=== PATIENT | female | born 1945 | race Caucasian/White ===

== ENCOUNTER 2017-04-26 12:44 | Inpatient (IN) | payer OTHER ==
[~2017-04-26 12:44] MED LIST: BUPIVACAINE HCL/PF 0.5% (5MG/ML) 10 ML VIAL IJ ONE
[2017-04-26 12:48] VITALS: BMI 27.3
[2017-04-26] MEDS ORDERED: ONDANSETRON 4 MG/2 ML VIAL IVPUSH ONE (13:35)
[2017-04-26] MEDS ORDERED: SODIUM CHLORIDE 1,000 ML IV STA ×2 (13:35→14:10)
[2017-04-26] MEDS ORDERED: ONDANSETRON 4 MG/2 ML VIAL ONE ×3 (13:37→20:29)
[2017-04-26 13:47] LABS: MCH 29.7 pg (25.7-33.7); MEAN CELL VOLUME 89.9 fl (80-96); MEAN PLT VOLUME 8.8 fl (7.5-11.1); PLATELET COUNT 233 K/MM3 (134-434); RDW 13.9 % (11.6-15.6); URINE APPEARANCE CLEAR; URINE BILIRUBIN 1+ (NEGATIVE); URINE BLOOD 2+ (NEGATIVE); URINE GLUCOSE (UA) NEGATIVE (NEGATIVE); URINE KETONE TRACE (NEGATIVE); URINE NITRITE NEGATIVE (NEGATIVE); URINE UROBILINOGEN 0.2 mg/dL (0.2-1.0); WHITE BLOOD COUNT 20.2 K/mm3 (4.0-10.0)
[2017-04-26 13:48] LABS: URINE COLOR DK YELLOW; URINE LEUK ESTERASE 1+ (NEGATIVE); URINE PROTEIN 1+ (NEGATIVE)
--- NOTE | 2017-04-26 13:48 | PDOC ---
History of Present Illness - General Chief Complaint: Pain Stated Complaint: Abd pain Time Seen by Provider: 04/26/17 12:53 History Source: Patient Exam Limitations: No Limitations - History of Present Illness Travel History: No Initial Comments: 04/26/17 12:56 71-year-old female sent over by her PCP Dr. Aviles for evaluation of fever, anorexia, nausea and right lower quadrant pain concerning for appendicitis. Patient denies recent travel, recent illness, recent sick contacts. Patient denies any urinary complaints, bowel complaints. Patient also denies GI disorders, smoking history, or alcohol use. Timing/Duration: reports: getting worse Quality: reports: moderate, cramping, sharpness Abdominal Pain Onset Location: reports: RUQ, RLQ, periumbilical Pain Radiation: reports: no radiation Activities at Onset: reports: none Aggravating Factors: improves with: None Alleviating Factors: improves with: None, Passing Gas Past History - Travel Traveled outside of the country in the last 30 days: No Close contact w/someone who was outside of country & ill: No - Past Medical History Allergies/Adverse Reactions: Allergies Allergy/AdvReac Type Severity Reaction Status Date / Time No Known Allergies Allergy Verified 04/26/17 12:48 Home Medications: Ambulatory Orders Amlodipine Besylate [Norvasc -] 0 mg PO DAILY 04/26/17 Levothyroxine [Synthroid -] 0 mcg PO DAILY 04/26/17 HTN: Yes Thyroid Disease: Yes - Psycho/Social/Smoking Cessation Hx Suicidal Ideation: No Smoking History: Never smoked Information on smoking cessation initiated: No Hx Alcohol Use: No Drug/Substance Use Hx: No Patient Lives Alone: No Lives with/in: spouse/SO Review of Systems - Review of Systems Able to Perform ROS?: Yes Constitutional: Yes: Chills HEENTM: No: Symptoms Reported Respiratory: No: Symptoms reported Cardiac (ROS): No: Symptoms Reported ABD/GI: Yes: Nausea, Poor Appetite, Poor Fluid Intake, Abdominal cramping. No: Constipated, Diarrhea : No: Symptoms Reported Musculoskeletal: No: Symptoms Reported Integumentary: No: Symptoms Reported Neurological: No: Symptoms reported Endocrine: No: Symptoms Reported Hematologic/Lymphatic: No: Symptoms Reported *Physical Exam - Vital Signs Last Vital Signs Temp Pulse Resp BP Pulse Ox 98.6 F 78 19 147/78 100 04/26/17 12:46 04/26/17 12:46 04/26/17 12:46 04/26/17 12:46 04/26/17 12:46 - Physical Exam General Appearance: Yes: Nourished, Appropriately Dressed. No: Apparent Distress HEENT: negative: Pale Conjunctivae Respiratory/Chest: positive: Lungs Clear, Normal Breath Sounds. negative: Respiratory Distress, Accessory Muscle Use Cardiovascular: positive: Regular Rhythm, Regular Rate. negative: Murmur Gastrointestinal/Abdominal: positive: Soft, Tenderness (right lower quadrant positive McBurney's. Right upper quadrant tenderness. Positive Reyes's) Musculoskeletal: negative: CVA Tenderness (R) Extremity: positive: Normal Capillary Refill Integumentary: positive: Normal Color, Warm, Moist Neurologic: positive: Normal Mood/Affect, Motor Strength 5/5 (ambulatory) ED Treatment Course - LABORATORY CBC & Chemistry Diagram: 04/28/17 07:00 04/28/17 07:00 - RADIOLOGY Radiology Studies Ordered: Category Date Time Status ABDOMEN & PELVIS CT WITH CONTR [CT] Stat CT Scan 04/26/17 13:28 Ordered CHEST X-RAY PORTABLE* [RAD] Stat Radiology 04/26/17 13:27 Ordered GALLBLADDER US [US] Stat Ultrasound 04/26/17 13:28 Ordered Medical Decision Making - Medical Decision Making 04/26/17 13:04 Patient sent over by her PCP for evaluation of right lower quadrant and right upper quadrant pain concerning for appendicitis. Patient on exam did have tenderness to the right lower quadrant and right upper quadrant concerning for also cholecystitis. Patient ordered for urine, labs, gallbladder ultrasound and CT with IV contrast of the abdomen. 04/26/17 15:04 Laboratory Tests 04/26/17 13:34 Urine Color Dk yellow Urine pH 6.0 Urine Ketones Trace H Urine Blood 2+ H Ur Leukocyte Esterase 1+ H Urine RBC 9 Urine WBC 15 Pt had urine cx sent,. Pt ordered for ceftriaxone iv. 04/26/17 15:04 Laboratory Tests 04/26/17 04/26/17 13:34 13:34 WBC 20.2 H Hgb 13.2 Hct 40.0 Plt Count 233 Neutrophils % (Manual) 70 Monocytes % (Manual) 3 L Sodium 140 Potassium 3.5 Chloride 102 Carbon Dioxide 29 Anion Gap 9 BUN 12 Creatinine 0.9 Random Glucose 117 H Magnesium 2.2 Total Bilirubin 1.1 H Lipase 68 L Pt concerning for appendicitis. Pt states pain has increased to her rt lower quadrant and suprapubic region describing it as burning and hot feeling. Pt required initially toradol with no improvement , so received dilaudid x 2 until comfortable. Pt concerning for rupture at this time. 04/26/17 16:33 Ultrasound shows acute appendicitis. A focal cecal wall thickening with associated intramural hypodensity noted in the region of the appendiceal orifice as discussed above. This small amount of free fluid in the pelvic. Mildly dilated small bowel which may be an obese of ileus versus mild/ developing obstruction. Patient given IV ceftriaxone will be given IV Flagyl. Case will be discussed with surgeon information assurance analyst. Case also to be discussed with patient's primary care physician. 04/26/17 16:40 Case discussed with patient's PCP Dr. Alonso states she admits to Dr. Slater. She's also recommending Dr. Alvarez for surgery 04/26/17 16:[address] Alvarez and will be down shortly to consult on patient. Patient also has a fever 102.7. Patient ordered for IV Tylenol made nothing by mouth and will be admitted to [facility] inpatient. Case also discussed with the OPTICAL INSTRUMENT REPAIRER for Dr. Slater who accepted the patient. 04/28/17 18:00 *DC/Admit/Observation/Transfer Diagnosis at time of Disposition: Appendicitis Qualifiers: Appendicitis type: acute appendicitis Acute appendicitis type: other Qualified Code(s): K35.89 - Other acute appendicitis - Discharge Dispostion Admit: Yes - Referrals
[2017-04-26 14:09] LABS: URINE BACTERIA RARE /hpf (NONE SEEN); URINE MUCUS MODERATE; URINE RBC 9 /hpf (0-3); URINE WBC 15 /hpf (3-5)
[2017-04-26 14:12] LABS: ALBUMIN 3.9 g/dl (3.4-5.0); ANION GAP 9 (8-16); CALCIUM 8.7 mg/dL (8.5-10.1); CO2 29 mmol/L (21-32); CREATININE 0.9 mg/dL (0.55-1.02); GLUCOSE,RANDOM 117 mg/dL (74-106); MAGNESIUM 2.2 mg/dL (1.8-2.4); SGOT/AST 13 U/L (15-37); SGPT/ALT 24 U/L (12-78)
[2017-04-26 14:14] LABS: ALK PHOS 68 U/L (45-117); BILIRUBIN,TOTAL 1.1 mg/dL (0.2-1.0); TOT PROT 6.7 g/dl (6.4-8.2)
[2017-04-26] MEDS ORDERED: KETOROLAC TROMETHAMINE 30 MG/1 ML VIAL ONE (14:21)
[2017-04-26 14:25] LABS: PLATELET ESTIMATE ADEQUATE (NORMAL); REACTIVE LYMPHOCYTES 7 % (0-80); TOTAL CELLS COUNTED 100
[2017-04-26] MEDS ORDERED: KETOROLAC TROMETHAMINE 30 MG/1 ML VIAL IVPUSH ONE (14:29)
[2017-04-26] MEDS ORDERED: HYDROmorphone HCL CARPU-JECT 1 MG/1 ML DISP.SYRIN ONE ×2 (14:35→14:50)
[2017-04-26] MEDS: HYDROmorphone HCL CARPU-JECT 2 MG/1 ML DISP.SYRIN IVPUSH ONE ×2 (14:35→20:55)
[2017-04-26] MEDS ORDERED: HYDROmorphone HCL CARPU-JECT 1 MG/1 ML DISP.SYRIN IVPUSH ONE (14:49)
[2017-04-26] MEDS ORDERED: CEFTRIAXONE 1 GM in DEXTROSE 5%-WATER - 50 ML IVPB ONE (15:03)
[2017-04-26] MEDS ORDERED: CEFTRIAXONE 50 ML ONE (15:40)
[2017-04-26] MEDS ORDERED: ACETAMINOPHEN INJECTION 100 ML IVPB ONE ×2 (16:48→20:29)
[2017-04-26] MEDS: ACETAMINOPHEN 1000 MG/100 ML VIAL (NON FORMULARY) IVPB ONE (16:52)
[2017-04-26] MEDS ORDERED: morphine CARPU-JECT 2 MG/1 ML DISP.SYRIN IVPUSH PRN (17:28)
[2017-04-26] MEDS ORDERED: SODIUM CHLORIDE 1,000 ML IV SCH (17:30)
[2017-04-26] MEDS ORDERED: ONDANSETRON 4 MG/2 ML VIAL IVPB PRN ×2 (17:32→20:34)
[2017-04-26] MEDS ORDERED: BUPIVACAINE HCL/PF 0.5% (5MG/ML) 10 ML VIAL ONE (17:57)
[2017-04-26] MEDS ORDERED: LACTATED RINGERS SOLUTION 1,000 ML IV SCH (18:30)
[2017-04-26] MEDS ORDERED: PROPOFOL 20 ML ONE (18:31)
[2017-04-26] MEDS ORDERED: ROCURONIUM BROMIDE 50 MG/5 ML VIAL ONE (18:32)
[2017-04-26] MEDS ORDERED: SUCCINYLCHOLINE CHLORIDE 200 MG/10 ML VIAL ONE (18:37)
[2017-04-26] MEDS ORDERED: ceFAZolin SODIUM 1 GM VIAL ONE (18:49)
[2017-04-26] MEDS ORDERED: ceFAZolin SODIUM 1 GM VIAL IVPB ONE ×2 (18:50)
[2017-04-26 18:54] LABS: INR 1.21 (0.82-1.09); PROTHROMBIN TIME (PATIENT) 13.4 SEC (9.98-11.88)
[2017-04-26] MEDS ORDERED: DEXAMETHASONE SOD PHOSPHATE 4 MG/1 ML VIAL ONE (19:03)
[2017-04-26] MEDS ORDERED: BUPIVACAINE HCL/PF 0.5% (5MG/ML) 10 ML VIAL IJ ONE (20:08)
--- NOTE | 2017-04-26 20:30 | CONSULT ---
Consult Consult Specialty:: Surgery Reason for Consultation:: Perforated appendicitis - History of Present Illness Chief Complaint: Abdominal pain History of Present Illness: 71 female seen in the ER for abdominal pain x 2-3 days Pain got worse and then improved Noted subjective fevers Perforated appendicitis noted on CT along with an elevated WBC and + fevers in the ER - History Source History Provided By: Patient Limitations to Obtaining History: No Limitations - Alcohol/Substance Use Hx Alcohol Use: No - Smoking History Smoking history: Never smoked Home Medications - Allergies Allergies/Adverse Reactions: Allergies Allergy/AdvReac Type Severity Reaction Status Date / Time No Known Allergies Allergy Verified 04/26/17 12:48 - Home Medications Home Medications: Ambulatory Orders Amlodipine Besylate [Norvasc -] 0 mg PO DAILY 04/26/17 Levothyroxine [Synthroid -] 0 mcg PO DAILY 04/26/17 Family Disease History - Family Disease History Family History: Unremarkable Review of Systems - Review of Systems Constitutional: reports: Chills, Fever, Malaise HENT: reports: No Symptoms Neck: reports: No Symptoms Cardiovascular: denies: Chest Pain Respiratory: denies: Cough Gastrointestinal: reports: Abdominal Pain. denies: Melena, Vomiting Neurological: denies: Change in LOC Pain Intensity: 5 Physical Exam Vital Signs: Vital Signs Temperature 101.4 F H 04/26/17 17:44 Pulse Rate 94 H 04/26/17 17:44 Respiratory Rate 18 04/26/17 17:44 Blood Pressure 137/82 04/26/17 17:44 O2 Sat by Pulse Oximetry (%) 97 04/26/17 17:44 Constitutional: Yes: Calm Neck: Yes: Supple Cardiovascular: Yes: Regular Rate and Rhythm Respiratory: Yes: Regular Gastrointestinal: Yes: Soft, Tenderness, Tenderness, Rebound (Local rebound/ guarding in the RLQ) Extremities: Yes: WNL Neurological: Yes: Alert, Oriented Labs: CBC, BMP 04/26/17 13:34 04/26/17 13:34 Imaging - Results Cat Scan: Report Reviewed, Image Reviewed Problem List - Problems (1) Perforated appendicitis Code(s): K35.2 - ACUTE APPENDICITIS WITH GENERALIZED PERITONITIS (2) Intra-abdominal abscess Code(s): K65.1 - PERITONEAL ABSCESS (3) SIRS due to Gram-negative infection Code(s): A41.50 - GRAM-NEGATIVE SEPSIS, UNSPECIFIED Assessment/Plan 71 female with perforated appendicitis NPO IV fluids Antibiotics For laparoscopic possible open appendectomy
--- NOTE | 2017-04-26 20:32 | OP ---
Operative Note - Note: Operative Date: 04/26/17 Pre-Operative Diagnosis: Perforated appendicitis Operation: Laparoscopic appendectomy, partial cecectomy, partial omentectomy, abdominal washout, lysis of adhesions Findings: Perforated appendicitis with appendiceal rupture and copious pus and stool in the abdomen and pelvis Surgeon: Alf Alvarez Anesthesia: General Specimens Removed: Appendix, portion of the cecum, omentum Estimated Blood Loss (mls): 50 Drains & Tubes with Location: Operative Report Dictated: Yes
[2017-04-26] MEDS ORDERED: PROMETHAZINE HCL 25 MG/1 ML VIAL ONE (20:39)
[2017-04-26] MEDS: PROMETHAZINE HCL 25 MG/1 ML VIAL IVPUSH ONE (20:50)
[2017-04-26] MEDS ORDERED: HYDROmorphone HCL CARPU-JECT 2 MG/1 ML DISP.SYRIN ONE (20:54)
[2017-04-26 21:04] LABS: MCH 30.5 pg (25.7-33.7); MCHC 33.5 g/dl (32.0-36.0); MEAN CELL VOLUME 91.2 fl (80-96); MEAN PLT VOLUME 9.5 fl (7.5-11.1); PLATELET COUNT 212 K/MM3 (134-434); RDW 13.5 % (11.6-15.6); WHITE BLOOD COUNT 12.2 K/mm3 (4.0-10.0)
[2017-04-26] MEDS: SODIUM CHLORIDE 1,000 ML IV SCH (21:45)
[2017-04-26 22:23] LABS: METAMYELOCYTE 2 % (0-2); PLATELET ESTIMATE ADEQUATE (NORMAL); TOTAL CELLS COUNTED 100
[2017-04-26 22:24] LABS: POLYCHROMASIA 1+
[2017-04-26 22:40] LABS: ANION GAP 10 (8-16); CALCIUM 7.5 mg/dL (8.5-10.1); CO2 25 mmol/L (21-32); CREATININE 0.7 mg/dL (0.55-1.02); GLUCOSE,RANDOM 133 mg/dL (74-106)
[2017-04-26] MEDS: ACETAMINOPHEN 1000 MG/100 ML VIAL (NON FORMULARY) IVPB PRN (22:59)
[2017-04-27] MEDS: METRONIDAZOLE 500 MG PREMIXED 100 ML IVPB SCH ×3 (01:43→16:59)
[2017-04-27] MEDS: ACETAMINOPHEN 1000 MG/100 ML VIAL (NON FORMULARY) IVPB PRN (05:33)
[2017-04-27] MEDS: SODIUM CHLORIDE 1,000 ML IV SCH (05:34)
[2017-04-27] MEDS: LEVOTHYROXINE NA 25 MCG TABLET (FP) PO SCH (06:06)
[2017-04-27] MEDS ORDERED: LEVOTHYROXINE NA 25 MCG TABLET (FP) PO SCH (07:00)
[2017-04-27] MEDS: PROMETHAZINE HCL 25 MG/1 ML VIAL IVPUSH ONE (07:53)
--- NOTE | 2017-04-27 08:12 | OP ---
DATE OF OPERATION: 04/26/2017 SURGEON: Alf Alvarez MD PREOPERATIVE DIAGNOSIS: Perforated appendicitis. POSTOPERATIVE DIAGNOSIS: Perforated appendicitis with copious amounts of pus and stool in the abdomen and pelvis. PROCEDURE: Laparoscopic appendectomy, partial cecectomy, partial omentectomy, and abdominal washout. SPECIMEN: Appendix, portion of the cecum, omentum. ESTIMATED BLOOD LOSS: 30 mL DRAINS: A HERRERA x1. ANESTHESIA: GET. REASON FOR PROCEDURE: This is a 71-year-old female who presented to the hospital with abdominal pain. She was found to have an elevated white count, fevers, and a CT scan demonstrated perforated appendicitis. Because of this, she was consented for a laparoscopic, possible open appendectomy. The risks and benefits of the procedure were explained. This included bleeding, infection, hernia, OH, DVT, PE, injury to surrounding structures, abscess formation, staple line dehiscence as well as . She understood and signed informed consent. DESCRIPTION OF PROCEDURE: The patient was placed supine on the operating room table. She underwent general endotracheal intubation. A Mistry catheter was inserted. The abdomen was prepped and draped in the usual sterile fashion. A timeout was performed. An infraumbilical incision was made, and a 5-mm optical trocar was placed under direct visualization with the laparoscope. After pneumoperitoneum was established with a Veress, a 5-mm trocar was then placed in the suprapubic location. A 12- mm trocar was placed in the left lower quadrant. The patient was placed in Trendelenburg right side up position. Immediately was noted on inspection of the abdominal cavity that there was copious amount of stool and pus in the abdomen and pelvis. In addition, there was a large inflammatory response with inflamed bowel and adhesions from bowel to bowel and bowel to colon. Carefully, lysis of adhesions was performed with blunt dissection. The appendix was then freed up and elevated towards the abdominal wall. Upon dissection, it was noted that the base of the appendix was necrotic and there was perforation from the base with stool and pus noted. In addition, copious amounts of pus were also noted in the paracolic gutter as well as within the pelvis. In order to fully transect the appendix, a portion of the cecum had to be mobilized. Once this was performed, a partial cecectomy was performed using an Endo NASIM stapler with multiple white load staplers. The transection of the appendix was then completed by transecting the mesoappendix with the Endo NASIM stapler with white load. Specimens were placed in a bag and removed from the abdominal cavity. The staple lines were inspected and noted to be fully, and hemostasis was noted. Copious irrigation and suction were performed until clear. Irrigation with bacitracin was used in the right paracolic gutter, up above the liver, and in the pelvis until all purulent fluid was suctioned and cleared. Further irrigation and suction were performed. The 12-mm trocar was then removed, and the fascia approximated with a 0 Vicryl suture with the Andres-Nicole device. The 12-mm trocar was then reinserted, and a HERRERA drain placed within the right paracolic gutter. This was exteriorized at the suprapubic 5-mm trocar. The drain was secured with a 3-0 nylon suture. Pneumoperitoneum was desufflated. All trocars were then removed. The fascial suture at the 12-mm trocar site was then secured. Hemostasis of all the wounds was noted. The skin was approximated using chapin. The drain was placed to self-suction. The Mistry catheter was left in place. The patient was continued on antibiotics, was transferred to recovery room in stable condition. Christa [id number] MTDD
--- NOTE | 2017-04-27 08:25 | PN ---
Progress Note (short form) - Note Progress Note: Full note dictated Post op Alert NAD Selected Entries 04/27/17 05:40 Temperature 98.5 F Pulse Rate 78 Respiratory 20 Rate Blood Pressure 122/72 Microbiology Laboratory Tests 04/26/17 04/26/17 04/26/17 13:34 13:34 13:34 WBC 20.2 H Hgb 13.2 Plt Count 233 Neutrophils % (Manual) 70 Band Neuts % (Manual) Lymphocytes % (Manual) 20 Monocytes % (Manual) 3 L Total Protein 6.7 Albumin 3.9 Ur Leukocyte Esterase 1+ H Urine RBC 9 Urine WBC 15 Urine Bacteria Rare 04/26/17 20:40 WBC Hgb Plt Count Neutrophils % (Manual) Band Neuts % (Manual) 18 H Lymphocytes % (Manual) Monocytes % (Manual) Total Protein Albumin Ur Leukocyte Esterase Urine RBC Urine WBC Urine Bacteria Assessment Perforated appendicitis Plan Ceftriaxone 2 grs and metronidazole CRP Operative culture hopefully sent Kwabena ACEVES Problem List - Problems (1) Appendicitis Code(s): K37 - UNSPECIFIED APPENDICITIS Qualifiers: Appendicitis type: acute appendicitis Acute appendicitis type: other Qualified Code(s): K35.89 - Other acute appendicitis (2) Perforated appendicitis Code(s): K35.2 - ACUTE APPENDICITIS WITH GENERALIZED PERITONITIS
[2017-04-27 08:51] LABS: BASOPHIL 0.1 % (0-2.0); MCH 30.3 pg (25.7-33.7); MEAN CELL VOLUME 91.9 fl (80-96); MEAN PLT VOLUME 8.9 fl (7.5-11.1); NEUTROPHILS 72.7 % (42.8-82.8); PLATELET COUNT 130 K/MM3 (134-434); RDW 13.7 % (11.6-15.6); WHITE BLOOD COUNT 8.2 K/mm3 (4.0-10.0)
--- NOTE | 2017-04-27 08:53 | CONS ---
INFECTIOUS DISEASE CONSULTATION DATE OF CONSULTATION: DATE OF DICTATION: 04/27/2017 HISTORY OF PRESENT ILLNESS: This is a 71-year-old female who I am asked to see immediately postoperatively for a perforated appendicitis. She came complaining of abdominal pain, and her CAT scan of April 26 does not mention appendicitis. She was seen in consultation by Dr. Alvarez with the patient history that she had had worsening abdominal pain over 72 hours prior to admission, associated with subjective fever. According to Dr. Alvarez's note, findings suggested a perforated appendicitis; for which, she was taken to the OR with findings of perforation of the appendix with a laparoscopic appendectomy, partial cecectomy, partial omentectomy, abdominal washout, and lysis of adhesions. Copious pus and stool were noted in the abdomen and pelvis. Currently, the patient is alert, in good spirits, and denies any localizing complaints. She states she has a urinary tract infection, though has only vague urinary complaints. She was given ceftriaxone and metronidazole, and I am asked to see her regarding further antibiotic recommendations. PAST MEDICAL HISTORY: Includes hypertension, urinary tract infection, and hypothyroidism. CURRENT MEDICATIONS: Include hydromorphone, metronidazole, ceftriaxone, levothyroxine. ALLERGIES: None known. SOCIAL HISTORY: Lives with her 8-year-old granddaughter. Nonsmoker. No EtOH. Patient is a mid-. FAMILY HISTORY: Noncontributory. REVIEW OF SYSTEMS: Respiratory: No cough, shortness of breath. Cardiac: No chest pain, palpitations, murmur. Gastrointestinal: Abdominal pain as noted. Genitourinary: No dysuria, hematuria, urinary frequency. PHYSICAL EXAMINATION: Vital Signs: Her temperature was 98.5, pulse 78, blood pressure 122/72, respirations 20. Neck: Supple. Lungs: Clear to P&A. Heart: S1, S2. Regular rhythm without audible murmur. Abdomen: Soft. Postoperative laparoscopic dressings with pelvic HERRERA drain. Extremities: No clubbing, cyanosis, or edema. DIAGNOSTIC DATA: The white count is 20,000 with a left shift. Hemoglobin 13.2, platelets 233. BUN 8, creatinine 0.7. Urinalysis: Leukocyte esterase 1+, RBCs 9, WBCs 15. ASSESSMENT: Perforated appendicitis status post surgery with spillage of purulence and stool into the abdominal/pelvic cavity. PLAN: Agree with empiric antibiotics with ceftriaxone 2 g IV daily in combination with metronidazole. CRP which can be followed. Will need to be observed for evidence of post abscess. SAIGE ENCARNACION M.D. ANGEL/[id number] MTDD
[2017-04-27 09:13] LABS: BILIRUBIN,TOTAL 0.5 mg/dL (0.2-1.0); CREATININE 0.4 mg/dL (0.55-1.02); SGOT/AST 7 U/L (15-37); SGPT/ALT 12 U/L (12-78); TOT PROT 3.7 g/dl (6.4-8.2)
[2017-04-27 09:14] LABS: ALK PHOS 36 U/L (45-117)
[2017-04-27 09:21] LABS: ALBUMIN 1.9 g/dl (3.4-5.0); ANION GAP 11 (8-16); CO2 19 mmol/L (21-32); GLUCOSE,RANDOM 95 mg/dL (74-106)
[2017-04-27 09:31] LABS: C-REACTIVE PROTEIN 12.1 MG/DL (0.00-0.3)
[2017-04-27 09:32] LABS: CALCIUM 5.8 mg/dL (8.5-10.1)
[2017-04-27 09:46] LABS: BASOPHIL 0.6 % (0-2.0); MCH 30.3 pg (25.7-33.7); MCHC 33.4 g/dl (32.0-36.0); MEAN CELL VOLUME 90.7 fl (80-96); MEAN PLT VOLUME 8.7 fl (7.5-11.1); NEUTROPHILS 71.6 % (42.8-82.8); PLATELET COUNT 201 K/MM3 (134-434); RDW 13.8 % (11.6-15.6); WHITE BLOOD COUNT 13.5 K/mm3 (4.0-10.0)
--- NOTE | 2017-04-27 09:46 | PN ---
Progress Note (short form) - Note Progress Note: POD 1 Laparoscopic appendectomy, partial cecectomy, omentectomy, abdominal washout Perforated appendicitis with pus and stool throughout abdominal cavity Pain improved Nausea improved Mistry - concentrated urine Vital Signs Period Temp Pulse Resp BP Sys/Peña Pulse Ox Last 24 Hr 98.4 F-102.7 F 77-94 14-32 106-157/64-89 94-100 Abd soft, incisional tenderness, HERRERA serosanguinous CBC, BMP 04/27/17 07:00 WBC 8 Hgb 13->7 HCT 39->22 Plt 212->130 NPO Repeat stat CBC to see if results correct If H/H correct, will transfuse PRBS- no ther signs of bleeding Not tachycardic or hypotensive; HERRERA nonbloody IV Antibiotics OOB Problem List - Problems (1) Perforated appendicitis Code(s): K35.2 - ACUTE APPENDICITIS WITH GENERALIZED PERITONITIS (2) Intra-abdominal abscess Code(s): K65.1 - PERITONEAL ABSCESS (3) SIRS due to Gram-negative infection Code(s): A41.50 - GRAM-NEGATIVE SEPSIS, UNSPECIFIED
[2017-04-27] MEDS ORDERED: DEXTROSE 5%-WATER 100 ML IVPB ONE (09:52)
[2017-04-27] MEDS: HYDROmorphone HCL CARPU-JECT 1 MG/1 ML DISP.SYRIN IVPB PRN ×2 (09:59→21:49)
[2017-04-27] MEDS ORDERED: HEPARIN NA (PORCINE) 5,000 UNITS/ML 1ML VIAL SQ SCH (10:00)
[2017-04-27] MEDS: CEFTRIAXONE 2 GM in DEXTROSE 5%-WATER 100 ML IVPB SCH (10:00)
[2017-04-27] MEDS ORDERED: CEFTRIAXONE 1 GM in DEXTROSE 5%-WATER - 50 ML IVPB SCH (10:00)
[2017-04-27] MEDS ORDERED: amLODIPine BESYLATE 5 MG TABLET (FP) PO SCH (10:00)
[2017-04-27] MEDS ORDERED: SODIUM CHLORIDE 0.9%/KCL 1,000 ML IV SCH (10:00)
[2017-04-27 10:54] LABS: ANION GAP 10 (8-16); CALCIUM 7.8 mg/dL (8.5-10.1); CO2 24 mmol/L (21-32); CREATININE 0.6 mg/dL (0.55-1.02); GLUCOSE,RANDOM 120 mg/dL (74-106)
[2017-04-27] MEDS: HEPARIN NA (PORCINE) 5,000 UNITS/ML 1ML VIAL SQ SCH ×2 (11:22→21:50)
[2017-04-27] MEDS ORDERED: SODIUM CHLORIDE 1,000 ML IV SCH (11:45)
--- NOTE | 2017-04-27 13:21 | EKG ---
Test Reason : Blood Pressure : / mmHG Vent. Rate : 073 BPM Atrial Rate : 073 BPM P-R Int : 174 ms QRS Dur : 090 ms QT Int : 390 ms P-R-T Axes : 049 035 018 degrees QTc Int : 429 ms NORMAL SINUS RHYTHM NORMAL ECG NO PREVIOUS ECGS AVAILABLE CLINICAL CORRELATION IS RECOMMENDED Confirmed by SORAYA RENEE MD ([id number]) on 04/27/2017 1:21:19 PM Referred By: Confirmed By:SORAYA RENEE MD
--- NOTE | 2017-04-27 14:30 | PN ---
Progress Note (short form) - Note Progress Note: Anesthesiology Post-op POD#1 s/p laparoscopic appendectomy/cecetomy/omentectomy under GA. Pt. feels very well, denies pain,denies n/v and is OOB walking without difficulty. VSS.
[2017-04-27] MEDS ORDERED: ACETAMINOPHEN 1000 MG/100 ML VIAL (NON FORMULARY) IVPB PRN (18:42)
--- NOTE | 2017-04-27 19:28 | HP ---
Admitting History and Physical - Primary Care Physician PCP: Alice Aviles (Annabi,Iyad) - Admission Chief Complaint: abdominal pain, appendicitis History of Present Illness: Ms Salter, a pleasant 71 year old female came in through [facility] ER, sent over by her PCP after office evaluation of right lower quadrant pain and possible diagnosis of appendicitis. Patient states her pain started 4 days ago and she just took some advil which did not help. She denies any fever, chills, fatigue, nausea, vomiting, constipation or diarrhea. She was evaluated by GI surgery and CT showed perforated appendicitis. Decision to operate was made immediately done. She is post op day 1 today, Feels better, just post op pain, has acetaminophen and Dilaudid on board for pain management. She is tolerating clear liquids. Has not passed gas yet. History Source: Patient Limitations to Obtaining History: No Limitations - Past Medical History Cardiovascular: Yes: HTN Endocrine: Yes: Hypothyroidism - Smoking History Smoking history: Never smoked - Alcohol/Substance Use Hx Alcohol Use: No Home Medications - Allergies Allergies/Adverse Reactions: Allergies Allergy/AdvReac Type Severity Reaction Status Date / Time No Known Allergies Allergy Verified 04/26/17 12:48 - Home Medications Home Medications: Ambulatory Orders Amlodipine Besylate [Norvasc -] 0 mg PO DAILY 04/26/17 Levothyroxine [Synthroid -] 0 mcg PO DAILY 04/26/17 Review of Systems - Review of Systems Constitutional: reports: No Symptoms Eyes: reports: No Symptoms HENT: reports: No Symptoms Neck: reports: No Symptoms Cardiovascular: reports: No Symptoms Respiratory: reports: No Symptoms Gastrointestinal: reports: Abdominal Pain, Nausea Genitourinary: reports: No Symptoms Breasts: reports: No Symptoms Reported Musculoskeletal: reports: No Symptoms Integumentary: reports: No Symptoms Neurological: reports: No Symptoms Endocrine: reports: No Symptoms Hematology/Lymphatic: reports: No Symptoms Psychiatric: reports: No Symptoms Physical Examination Vital Signs: Vital Signs Temperature 98.6 F 04/27/17 17:09 Pulse Rate 68 04/27/17 17:09 Respiratory Rate 20 04/27/17 17:09 Blood Pressure 119/68 04/27/17 17:09 O2 Sat by Pulse Oximetry (%) 100 04/27/17 09:00 Constitutional: Yes: Well Nourished, No Distress, Calm Cardiovascular: Yes: Regular Rate and Rhythm Respiratory: Yes: Regular Gastrointestinal: Yes: Normal Bowel Sounds, Tenderness (post op) Edema: No Peripheral Pulses WNL: Yes Neurological: Yes: Alert, Oriented Psychiatric: Yes: Alert, Oriented Labs: CBC, BMP 04/27/17 09:30 04/27/17 10:20 Problem List - Problems (1) Intra-abdominal abscess Code(s): K65.1 - PERITONEAL ABSCESS (2) Perforated appendicitis Code(s): K35.2 - ACUTE APPENDICITIS WITH GENERALIZED PERITONITIS (3) SIRS due to Gram-negative infection Code(s): A41.50 - GRAM-NEGATIVE SEPSIS, UNSPECIFIED Assessment/Plan -pain management -oob as tolerated -IVF -IV abx -ID on board -advance diet as per surgery -repeat labs in AM
[2017-04-28] MEDS: METRONIDAZOLE 500 MG PREMIXED 100 ML IVPB SCH ×3 (01:34→17:31)
[2017-04-28] MEDS: HYDROmorphone HCL CARPU-JECT 1 MG/1 ML DISP.SYRIN IVPB PRN (01:34)
[2017-04-28] MEDS: LEVOTHYROXINE NA 25 MCG TABLET (FP) PO SCH (07:04)
[2017-04-28 08:18] LABS: BASOPHIL 0.5 % (0-2.0); EOSINOPHIL 0.5 % (0-4.5); MCHC 33.1 g/dl (32.0-36.0); MEAN CELL VOLUME 90.7 fl (80-96); MEAN PLT VOLUME 9.1 fl (7.5-11.1); NEUTROPHILS 74.1 % (42.8-82.8); PLATELET COUNT 237 K/MM3 (134-434); WHITE BLOOD COUNT 13.8 K/mm3 (4.0-10.0)
--- NOTE | 2017-04-28 08:44 | PN ---
Progress Note (short form) - Note Progress Note: ID Day 2 lap appendectomy with perforation Selected Entries 04/28/17 06:00 Temperature 98.7 F Pulse Rate 77 Respiratory 18 Rate Blood Pressure 141/80 Lung Clear Cor S1 S2 RR no murmur Abd Soft no HERRERA draining serosanguious drainage Microbiology 04/26/17 14:11 Urine - Urine Clean Catch Urine Culture - Final NO GROWTH OBTAINED 04/26/17 14:33 Blood - Peripheral Venous Blood Culture - Preliminary NO GROWTH OBTAINED AFTER 24 HOURS, INCUBATION TO CONTINUE FOR 4 DAYS. 04/26/17 14:33 Blood - Peripheral Venous Blood Culture - Preliminary NO GROWTH OBTAINED AFTER 24 HOURS, INCUBATION TO CONTINUE FOR 4 DAYS. Laboratory Tests 04/27/17 04/28/17 07:00 07:00 WBC 13.8 H Hgb 12.1 Hct 36.5 Plt Count 237 C-Reactive Protein 12.1 H Assessment Peritonitis with perforated viscus Plan Continue antibiotic as ordered Moniter for evidence for collection as severe appendicitis per Dr Kim Yuan MD Problem List - Problems (1) Appendicitis Code(s): K37 - UNSPECIFIED APPENDICITIS Qualifiers: Appendicitis type: acute appendicitis Acute appendicitis type: other Qualified Code(s): K35.89 - Other acute appendicitis (2) Perforated appendicitis Code(s): K35.2 - ACUTE APPENDICITIS WITH GENERALIZED PERITONITIS
[2017-04-28 08:46] LABS: CALCIUM 8.2 mg/dL (8.5-10.1)
[2017-04-28 09:07] LABS: ALBUMIN 2.9 g/dl (3.4-5.0); ALK PHOS 63 U/L (45-117); ANION GAP 9 (8-16); BILIRUBIN,TOTAL 0.8 mg/dL (0.2-1.0); CO2 24 mmol/L (21-32); CREATININE 0.6 mg/dL (0.55-1.02); GLUCOSE,RANDOM 107 mg/dL (74-106); SGOT/AST 16 U/L (15-37); SGPT/ALT 17 U/L (12-78); TOT PROT 5.8 g/dl (6.4-8.2)
[2017-04-28] MEDS ORDERED: DEXTROSE 5%-WATER 100 ML IVPB ONE (09:18)
--- NOTE | 2017-04-28 09:29 | PN ---
Progress Note (short form) - Note Progress Note: Pain controlled + Nausea +Flatus Reported that HERRERA drain accidentally pulled out yesterday- dressing in place Vital Signs Period Temp Pulse Resp BP Sys/Peña Pulse Ox Last 24 Hr 98.2 F-99.7 F 68-77 16-20 119-141/64-80 100 Abd soft, dressings in place CBC, BMP 04/28/17 07:00 04/28/17 07:00 Antibiotics Regular diet OOB Problem List - Problems (1) Perforated appendicitis Code(s): K35.2 - ACUTE APPENDICITIS WITH GENERALIZED PERITONITIS (2) Intra-abdominal abscess Code(s): K65.1 - PERITONEAL ABSCESS (3) SIRS due to Gram-negative infection Code(s): A41.50 - GRAM-NEGATIVE SEPSIS, UNSPECIFIED
[2017-04-28] MEDS: HEPARIN NA (PORCINE) 5,000 UNITS/ML 1ML VIAL SQ SCH ×2 (09:35→21:21)
[2017-04-28] MEDS: CEFTRIAXONE 2 GM in DEXTROSE 5%-WATER 100 ML IVPB SCH (11:04)
--- NOTE | 2017-04-28 12:51 | PN ---
Progress Note, Physician Chief Complaint: Abdominal pain, perforated appendicitis/peritonitis History of Present Illness: POD #2 sitting comfortably in chair, OOB +flatus -nausea/vomiting -pain better controlled -on IV abx -seen by ID and surgery - Current Medication List Current Medications: Active Medications Acetaminophen (Tylenol -) 650 mg PO Q6H PRN PRN Reason: FEVER OR PAIN Heparin Sodium (Porcine) (Heparin -) 5,000 unit SQ BID [facility] Last Admin: 04/28/17 09:35 Dose: 5,000 unit Hydromorphone HCl (Dilaudid Injection -) 1 mg IVPB Q4H PRN PRN Reason: PAIN Last Admin: 04/28/17 01:34 Dose: 1 mg Metronidazole (Flagyl 500mg Premixed Ivpb -) 100 mls @ 100 mls/hr IVPB Q8H-IV [facility] Last Admin: 04/28/17 09:34 Dose: 100 mls/hr Ceftriaxone Sodium 2 gm/ (Dextrose) 100 mls @ 200 mls/hr IVPB DAILY [facility] Last Admin: 04/28/17 11:04 Dose: 200 mls/hr Sodium Chloride (Normal Saline -) 1,000 mls @ 150 mls/hr IV ASDIR [facility] Last Admin: 04/27/17 18:45 Dose: 150 mls/hr Levothyroxine Sodium (Synthroid -) 25 mcg PO DAILY@0700 [facility] Last Admin: 04/28/17 07:04 Dose: 25 mcg Ondansetron HCl (Zofran Injection) 4 mg IVPB Q4H PRN PRN Reason: NAUSEA AND/OR VOMITING Last Admin: 04/26/17 20:30 Dose: 4 mg - Objective Vital Signs: Vital Signs Temperature 100.6 F H 04/28/17 08:24 Pulse Rate 78 04/28/17 08:24 Respiratory Rate 16 04/28/17 09:00 Blood Pressure 150/89 04/28/17 08:24 O2 Sat by Pulse Oximetry (%) 95 04/28/17 09:00 Constitutional: Yes: Well Nourished, No Distress, Calm Cardiovascular: Yes: Regular Rate and Rhythm Respiratory: Yes: Regular Gastrointestinal: Yes: Normal Bowel Sounds, Tenderness (incisional) Musculoskeletal: Yes: WNL Extremities: Yes: WNL Edema: No Peripheral Pulses WNL: Yes Wound/Incision: Yes: Clean/Dry, Dressing Dry and Intact Neurological: Yes: Alert, Oriented Psychiatric: Yes: Alert, Oriented Labs: CBC, BMP 04/28/17 07:00 04/28/17 07:00 INR, PTT INR 1.21 (0.82-1.09) H 04/26/17 18:00 Problem List - Problems (1) Intra-abdominal abscess Code(s): K65.1 - PERITONEAL ABSCESS (2) Perforated appendicitis Code(s): K35.2 - ACUTE APPENDICITIS WITH GENERALIZED PERITONITIS (3) SIRS due to Gram-negative infection Code(s): A41.50 - GRAM-NEGATIVE SEPSIS, UNSPECIFIED Assessment/Plan -pain management -oob as tolerated -IVF -IV abx -ID on board -on regular diet -repeat labs in AM -low grade temp this AM -tylenol for fever over 100.0F
[2017-04-28] MEDS: ACETAMINOPHEN 1000 MG/100 ML VIAL (NON FORMULARY) IVPB ONE (13:36)
[2017-04-28] MEDS ORDERED: ACETAMINOPHEN 325 MG TABLET (FP) PO PRN (14:26)
[2017-04-28] MEDS: oxyCODONE HCL 5 MG TABLET PO PRN (14:47)
[2017-04-28] MEDS: MAG HYDROX/AL HYDROX/SIMETH 30 ML UNIT-DOSE CUP PO PRN (14:47)
[2017-04-28] MEDS: SODIUM CHLORIDE 1,000 ML IV SCH ×2 (14:51→18:42)
[2017-04-29] MEDS: ACETAMINOPHEN 325 MG TABLET (FP) PO PRN ×2 (00:35→17:26)
[2017-04-29] MEDS: oxyCODONE HCL 5 MG TABLET PO PRN ×4 (00:38→22:01)
[2017-04-29] MEDS: METRONIDAZOLE 500 MG PREMIXED 100 ML IVPB SCH ×5 (00:58→21:25)
[2017-04-29] MEDS: SODIUM CHLORIDE 1,000 ML IV SCH ×2 (04:00→14:22)
[2017-04-29] MEDS: LEVOTHYROXINE NA 25 MCG TABLET (FP) PO SCH (06:17)
[2017-04-29] MEDS: MAG HYDROX/AL HYDROX/SIMETH 30 ML UNIT-DOSE CUP PO PRN ×2 (06:20→17:25)
[2017-04-29 07:31] LABS: BASOPHIL 0.7 % (0-2.0); EOSINOPHIL 1.5 % (0-4.5); MCH 30.4 pg (25.7-33.7); MCHC 33.7 g/dl (32.0-36.0); MEAN CELL VOLUME 90.2 fl (80-96); NEUTROPHILS 62.1 % (42.8-82.8); PLATELET COUNT 230 K/MM3 (134-434); RDW 13.8 % (11.6-15.6); WHITE BLOOD COUNT 11.5 K/mm3 (4.0-10.0)
[2017-04-29 08:13] LABS: ANION GAP 10 (8-16); CO2 26 mmol/L (21-32); GLUCOSE,RANDOM 107 mg/dL (74-106)
[2017-04-29 08:18] LABS: ALBUMIN 2.5 g/dl (3.4-5.0); ALK PHOS 54 U/L (45-117); BILIRUBIN,TOTAL 0.5 mg/dL (0.2-1.0); CALCIUM 7.5 mg/dL (8.5-10.1); CREATININE 0.5 mg/dL (0.55-1.02); SGOT/AST 11 U/L (15-37); SGPT/ALT 14 U/L (12-78)
[2017-04-29] MEDS ORDERED: DEXTROSE 5%-WATER 100 ML IVPB ONE (09:25)
--- NOTE | 2017-04-29 09:44 | PN ---
Progress Note, Physician Chief Complaint: ID Alert ambulatory NAD Ceftriaxone metronidazole Almost 101 over night - Current Medication List Current Medications: Active Medications Acetaminophen (Tylenol -) 650 mg PO Q6H PRN PRN Reason: FEVER OR PAIN Last Admin: 04/29/17 00:35 Dose: 650 mg Acetaminophen (Tylenol -) 325 mg PO Q4H PRN PRN Reason: PAIN Stop: 05/01/17 14:25 Al Hydroxide/Mg Hydroxide (Mylanta Oral Suspension -) 30 ml PO Q6H PRN PRN Reason: DYSPEPSIA Last Admin: 04/29/17 06:20 Dose: 30 ml Heparin Sodium (Porcine) (Heparin -) 5,000 unit SQ BID [facility] Last Admin: 04/28/17 21:21 Dose: 5,000 unit Hydromorphone HCl (Dilaudid Injection -) 1 mg IVPB Q4H PRN PRN Reason: PAIN Last Admin: 04/28/17 01:34 Dose: 1 mg Metronidazole (Flagyl 500mg Premixed Ivpb -) 100 mls @ 100 mls/hr IVPB Q8H-IV [facility] Last Admin: 04/29/17 00:58 Dose: 100 mls/hr Ceftriaxone Sodium 2 gm/ (Dextrose) 100 mls @ 200 mls/hr IVPB DAILY [facility] Last Admin: 04/28/17 11:04 Dose: 200 mls/hr Sodium Chloride (Normal Saline -) 1,000 mls @ 100 mls/hr IV ASDIR [facility] Last Admin: 04/29/17 04:00 Dose: 100 mls/hr Levothyroxine Sodium (Synthroid -) 25 mcg PO DAILY@0700 [facility] Last Admin: 04/29/17 06:17 Dose: 25 mcg Ondansetron HCl (Zofran Injection) 4 mg IVPB Q4H PRN PRN Reason: NAUSEA AND/OR VOMITING Last Admin: 04/26/17 20:30 Dose: 4 mg Oxycodone HCl (Roxicodone -) 5 mg PO Q4H PRN PRN Reason: PAIN Last Admin: 04/29/17 06:25 Dose: 5 mg - Objective Vital Signs: Vital Signs Temperature 98.2 F 04/29/17 06:00 Pulse Rate 76 04/29/17 06:00 Respiratory Rate 20 04/29/17 06:00 Blood Pressure 145/95 04/29/17 06:00 O2 Sat by Pulse Oximetry (%) 100 04/28/17 21:00 Constitutional: Yes: Well Nourished, No Distress HENT: Yes: WNL, Atraumatic Neck: Yes: WNL, Supple Respiratory: Yes: WNL, Regular, CTA Bilaterally. No: Rales, Rhonchi, Wheezes Gastrointestinal: Yes: Soft, Tenderness (MIld generalized tenderness), Other ( Dressing dry) Labs: CBC, BMP 04/29/17 06:00 04/29/17 06:00 INR, PTT INR 1.21 (0.82-1.09) H 04/26/17 18:00 Problem List - Problems (1) Appendicitis Code(s): K37 - UNSPECIFIED APPENDICITIS Qualifiers: Appendicitis type: acute appendicitis Acute appendicitis type: other Qualified Code(s): K35.89 - Other acute appendicitis (2) Perforated appendicitis Code(s): K35.2 - ACUTE APPENDICITIS WITH GENERALIZED PERITONITIS Assessment/Plan Microbiology 04/26/17 14:11 Urine - Urine Clean Catch Urine Culture - Final NO GROWTH OBTAINED 04/26/17 14:33 Blood - Peripheral Venous Blood Culture - Preliminary NO GROWTH OBTAINED AFTER 48 HOURS, INCUBATION TO CONTINUE FOR 3 DAYS. 04/26/17 14:33 Blood - Peripheral Venous Blood Culture - Preliminary NO GROWTH OBTAINED AFTER 48 HOURS, INCUBATION TO CONTINUE FOR 3 DAYS. Laboratory Tests 04/29/17 04/29/17 06:00 06:00 WBC 11.5 H Hgb 11.2 Hct 33.2 Plt Count 230 BUN 8 Creatinine 0.5 L Assessment Seems to be improving If no fever between by tomorrow consider discharge on oral antibiotics if Dr Alvarez agrees Kwabena ACEVES
[2017-04-29] MEDS: CEFTRIAXONE 2 GM in DEXTROSE 5%-WATER 100 ML IVPB SCH (10:01)
[2017-04-29] MEDS: HEPARIN NA (PORCINE) 5,000 UNITS/ML 1ML VIAL SQ SCH ×2 (11:00→21:26)
[2017-04-29] MEDS ORDERED: GLYCERIN 1 RECTAL SUPPOSITORY, ADULT RC ONE (14:20)
[2017-04-29] MEDS: amLODIPine BESYLATE 5 MG TABLET (FP) PO SCH (17:22)
--- NOTE | 2017-04-29 20:05 | PN ---
Progress Note, Physician Chief Complaint: Abdominal pain, perforated appendicitis/peritonitis History of Present Illness: POD #2 -lying comfortably in bed +flatus -nausea/vomiting -pain better controlled -on IV abx -seen by ID and surgery wants to go home - Current Medication List Current Medications: Active Medications Acetaminophen (Tylenol -) 650 mg PO Q6H PRN PRN Reason: FEVER OR PAIN Last Admin: 04/29/17 17:26 Dose: 650 mg Acetaminophen (Tylenol -) 325 mg PO Q4H PRN PRN Reason: PAIN Stop: 05/01/17 14:25 Al Hydroxide/Mg Hydroxide (Mylanta Oral Suspension -) 30 ml PO Q6H PRN PRN Reason: DYSPEPSIA Last Admin: 04/29/17 17:25 Dose: 30 ml Amlodipine Besylate (Norvasc -) 5 mg PO DAILY [facility] Last Admin: 04/29/17 17:22 Dose: 5 mg Heparin Sodium (Porcine) (Heparin -) 5,000 unit SQ BID [facility] Last Admin: 04/29/17 11:00 Dose: 5,000 unit Hydromorphone HCl (Dilaudid Injection -) 1 mg IVPB Q4H PRN PRN Reason: PAIN Last Admin: 04/28/17 01:34 Dose: 1 mg Metronidazole (Flagyl 500mg Premixed Ivpb -) 100 mls @ 100 mls/hr IVPB Q8H-IV [facility] Last Admin: 04/29/17 19:01 Dose: Not Given Ceftriaxone Sodium 2 gm/ (Dextrose) 100 mls @ 200 mls/hr IVPB DAILY [facility] Last Admin: 04/29/17 10:01 Dose: 200 mls/hr Sodium Chloride (Normal Saline -) 1,000 mls @ 100 mls/hr IV ASDIR [facility] Last Admin: 04/29/17 14:22 Dose: 100 mls/hr Levothyroxine Sodium (Synthroid -) 25 mcg PO DAILY@0700 [facility] Last Admin: 04/29/17 06:17 Dose: 25 mcg Ondansetron HCl (Zofran Injection) 4 mg IVPB Q4H PRN PRN Reason: NAUSEA AND/OR VOMITING Last Admin: 04/26/17 20:30 Dose: 4 mg Oxycodone HCl (Roxicodone -) 5 mg PO Q4H PRN PRN Reason: PAIN Last Admin: 04/29/17 17:26 Dose: 5 mg - Objective Vital Signs: Vital Signs Temperature 98.6 F 04/29/17 16:20 Pulse Rate 79 04/29/17 16:20 Respiratory Rate 20 04/29/17 16:20 Blood Pressure 169/95 04/29/17 16:20 O2 Sat by Pulse Oximetry (%) 96 04/29/17 09:00 Constitutional: Yes: Well Nourished, No Distress, Calm Cardiovascular: Yes: Regular Rate and Rhythm Respiratory: Yes: Regular Gastrointestinal: Yes: Tenderness (incisional) Extremities: Yes: WNL Edema: No Peripheral Pulses WNL: Yes Neurological: Yes: Alert, Oriented Psychiatric: Yes: Alert, Oriented Labs: CBC, BMP 04/29/17 06:00 04/29/17 06:00 INR, PTT INR 1.21 (0.82-1.09) H 04/26/17 18:00 Problem List - Problems (1) Intra-abdominal abscess Code(s): K65.1 - PERITONEAL ABSCESS (2) Perforated appendicitis Code(s): K35.2 - ACUTE APPENDICITIS WITH GENERALIZED PERITONITIS (3) SIRS due to Gram-negative infection Code(s): A41.50 - GRAM-NEGATIVE SEPSIS, UNSPECIFIED Assessment/Plan -pain management -oob as tolerated -IVF -IV abx -ID on board -on regular diet -repeat labs in AM -low grade temp last night -tylenol for fever over 100.0F -okay to go home if cleared by ID.
[2017-04-29] MEDS ORDERED: POTASSIUM CHLORIDE ORAL LIQUID 20 MEQ/15 ML PO ONE (20:37)
[2017-04-30] MEDS: METRONIDAZOLE 500 MG PREMIXED 100 ML IVPB SCH ×2 (03:51→11:38)
[2017-04-30] MEDS: LEVOTHYROXINE NA 25 MCG TABLET (FP) PO SCH (06:03)
[2017-04-30 08:02] LABS: MCH 30.3 pg (25.7-33.7); MCHC 33.9 g/dl (32.0-36.0); MEAN CELL VOLUME 89.3 fl (80-96); MEAN PLT VOLUME 8.7 fl (7.5-11.1); PLATELET COUNT 263 K/MM3 (134-434); RDW 13.7 % (11.6-15.6); WHITE BLOOD COUNT 10.6 K/mm3 (4.0-10.0)
[2017-04-30 09:00] LABS: ALBUMIN 2.5 g/dl (3.4-5.0); ALK PHOS 63 U/L (45-117); ANION GAP 10 (8-16); BILIRUBIN,TOTAL 0.6 mg/dL (0.2-1.0); CALCIUM 7.6 mg/dL (8.5-10.1); CO2 27 mmol/L (21-32); CREATININE 0.4 mg/dL (0.55-1.02); GLUCOSE,RANDOM 104 mg/dL (74-106); SGOT/AST 39 U/L (15-37); SGPT/ALT 29 U/L (12-78); TOT PROT 5.1 g/dl (6.4-8.2)
[2017-04-30] MEDS ORDERED: POTASSIUM CHLORIDE TABS 20 MEQ TABLET.ER (FP) PO ONE (09:00)
--- NOTE | 2017-04-30 09:00 | PN ---
Progress Note, Physician - Current Medication List Current Medications: Active Medications Acetaminophen (Tylenol -) 650 mg PO Q6H PRN PRN Reason: FEVER OR PAIN Last Admin: 04/29/17 17:26 Dose: 650 mg Acetaminophen (Tylenol -) 325 mg PO Q4H PRN PRN Reason: PAIN Stop: 05/01/17 14:25 Last Admin: 04/29/17 22:01 Dose: 325 mg Al Hydroxide/Mg Hydroxide (Mylanta Oral Suspension -) 30 ml PO Q6H PRN PRN Reason: DYSPEPSIA Last Admin: 04/29/17 17:25 Dose: 30 ml Amlodipine Besylate (Norvasc -) 5 mg PO DAILY [facility] Last Admin: 04/29/17 17:22 Dose: 5 mg Heparin Sodium (Porcine) (Heparin -) 5,000 unit SQ BID [facility] Last Admin: 04/29/17 21:26 Dose: 5,000 unit Hydromorphone HCl (Dilaudid Injection -) 1 mg IVPB Q4H PRN PRN Reason: PAIN Last Admin: 04/28/17 01:34 Dose: 1 mg Metronidazole (Flagyl 500mg Premixed Ivpb -) 100 mls @ 100 mls/hr IVPB Q8H-IV [facility] Last Admin: 04/30/17 03:51 Dose: 100 mls/hr Ceftriaxone Sodium 2 gm/ (Dextrose) 100 mls @ 200 mls/hr IVPB DAILY [facility] Last Admin: 04/29/17 10:01 Dose: 200 mls/hr Levothyroxine Sodium (Synthroid -) 25 mcg PO DAILY@0700 [facility] Last Admin: 04/30/17 06:03 Dose: 25 mcg Ondansetron HCl (Zofran Injection) 4 mg IVPB Q4H PRN PRN Reason: NAUSEA AND/OR VOMITING Last Admin: 04/26/17 20:30 Dose: 4 mg Oxycodone HCl (Roxicodone -) 5 mg PO Q4H PRN PRN Reason: PAIN Last Admin: 04/29/17 22:01 Dose: 5 mg Potassium Chloride (K-Dur -) 40 meq PO ONCE ONE Stop: 04/30/17 09:01 - Objective Vital Signs: Vital Signs Temperature 98.1 F 04/30/17 07:21 Pulse Rate 76 04/30/17 07:21 Respiratory Rate 20 04/30/17 07:21 Blood Pressure 153/96 04/30/17 07:21 O2 Sat by Pulse Oximetry (%) 95 04/29/17 21:00 Labs: CBC, BMP 04/30/17 06:00 04/30/17 06:00 INR, PTT INR 1.21 (0.82-1.09) H 04/26/17 18:00
[2017-04-30] MEDS ORDERED: DEXTROSE 5%-WATER 100 ML IVPB ONE (10:39)
[2017-04-30] MEDS: CEFTRIAXONE 2 GM in DEXTROSE 5%-WATER 100 ML IVPB SCH (10:42)
[2017-04-30] MEDS: HEPARIN NA (PORCINE) 5,000 UNITS/ML 1ML VIAL SQ SCH (10:43)
[2017-04-30] MEDS: amLODIPine BESYLATE 5 MG TABLET (FP) PO SCH (10:43)
[2017-04-30 11:20] LABS: BASOPHIL (MANUAL) 1 % (0-2.0); REACTIVE LYMPHOCYTES 1 % (0-80); TOTAL CELLS COUNTED 100
--- NOTE | 2017-04-30 11:58 | PN ---
Progress Note (short form) - Note Progress Note: Pain improved + BM Tolerating diet Vital Signs Period Temp Pulse Resp BP Sys/Peña Pulse Ox Last 24 Hr 98.1 F-99.3 F 76-80 20-20 148-169/80-96 95 Abd soft CBC, BMP 04/30/17 06:00 04/30/17 06:00 Doing well Discharge home on PO antibiotics Follow up in 2 weeks [phone] Problem List - Problems (1) Perforated appendicitis Code(s): K35.2 - ACUTE APPENDICITIS WITH GENERALIZED PERITONITIS (2) Intra-abdominal abscess Code(s): K65.1 - PERITONEAL ABSCESS (3) SIRS due to Gram-negative infection Code(s): A41.50 - GRAM-NEGATIVE SEPSIS, UNSPECIFIED
--- NOTE | 2017-04-30 12:15 | DS ---
Physical Examination Vital Signs: Vital Signs Temperature 98.1 F 04/30/17 07:21 Pulse Rate 76 04/30/17 07:21 Respiratory Rate 20 04/30/17 07:21 Blood Pressure 153/96 04/30/17 07:21 O2 Sat by Pulse Oximetry (%) 95 04/29/17 21:00 Labs: CBC, BMP 04/30/17 06:00 04/30/17 06:00 Discharge Summary Reason For Visit: APPENDICITIS Current Active Problems Appendicitis (Acute) Intra-abdominal abscess (Acute) Perforated appendicitis (Acute) SIRS due to Gram-negative infection (Acute) - Instructions Diet, Activity, Other Instructions: [facility] Alf Alvarez M.D. [address] [place] [address],[address] [address] [facility] [address]. [id number] Robotic, Bariatric and General Surgery Postoperative Instructions for General Surgery Activity: Resume normal everyday activity as tolerated. You may walk and climb stairs without any limitation. We encourage you to walk as often as you can Do not lift anything more than 10 pounds for 8 weeks. At that time, you can return to full activity, including the gym, without limitation. Do not drive a motor vehicle while taking prescribes narcotic pain medication. Wound Care: If you have a bandage in place, leave it on for 3 days. At that time you may remove the outer bandage. If there are strips of tape on the skin after removing the outer bandage, leave them in place. They will fall off by themselves. Do not remove them. If there is clear glue on the skin after removing the outer bandage, leave it in place. Do not pick at it or peel it off. You may shower after taking the outer bandage off, 3 days after your surgery. For male groin hernia patients: you may notice a black and blue discoloration of your testicles. This is normal and should resolve over the next week or two. If this persists, please call the office. Diet: You may continue your regular diet at home. If you have a history of high blood pressure, you should be on a low sodium diet. If you have a history of Diabetes Mellitus, you should be on a diabetic/sugar controlled diet. If you had your gallbladder removed, you should be on a low cholesterol/low fat diet. Medications/Pain Management: You may resume previous medications unless told otherwise. You may take the prescribed narcotic pain medication as needed. If the narcotic medication is not needed for pain control, you may take Tylenol. Avoid all other pain medications including Advil, Ibuprofen, Motrin, Aspirin, Naprosyn, Aleve, Celebrex. Vomiting/Nausea: This may occur if you eat too fast, don't chew, or eat too much. Go back to fluids. If the vomiting or nausea persists, call the office. Constipation/Diarrhea: You may experience a change in bowel habits. Many things affect this, including taking pain medication. If either persist, call the office. Follow up: Call the office at [phone] for an appointment 2 weeks after your surgical procedure. Referrals: Alice Aviles MD [Primary Care Provider] - 1 Week - Home Medications Comprehensive Discharge Medication List: Ambulatory Orders Amlodipine Besylate [Norvasc -] 0 mg PO DAILY 04/26/17 Levothyroxine [Synthroid -] 0 mcg PO DAILY 04/26/17 Docusate Sodium [Colace -] 100 mg PO TID #90 capsule 04/30/17 Levofloxacin [Levaquin -] 500 mg PO DAILY #10 tablet 04/30/17 Metronidazole [Flagyl -] 500 mg PO TID #10 tablet 04/30/17 Oxycodone HCl/Acetaminophen [Percocet 5-325 mg Tablet] 1 - 2 tab PO Q6H #28 tab MDD 4 04/30/17
[2017-04-30 12:38] VITALS: BP 165/90; PULSE 75; TEMP 98.2
--- NOTE | 2017-05-01 14:42 | PATH ---
Surgical Pathology Report Patient Name: COLLEEN CERVANTES Med. Rec. #: [id number] /Age/Gender: 1945 (Age: 71) / F Account: [id number] Location: [facility] MED/SURG Taken: 04/26/2017 Received: 04/30/2017 Reported: 05/01/2017 Physicians: Alf Alvarez M.D. Specimen(s) Received APPENDIX, PARTIAL CECUM AND OMENTUM Clinical History Perforated appendicitis Final Diagnosis APPENDIX, PARTIAL CECUM AND OMENTUM, APPENDECTOMY, PARTIAL CECECTOMY, AND OMENTECTOMY: MARKED ACUTE PHLEGMONOUS APPENDICITIS WITH EVIDENCE OF PERFORATION AND PERIAPPENDICITIS WITH INVOLVEMENT OF THE CECUM AND OMENTUM. Electronically Signed Jon Bradshaw M.D. Gross Description Received in formalin labeled "appendix, partial cecum and omentum" is a 6.5 cm in length vermiform appendix with an open margin. The outer surface is duran-brown with attached exudate. Sectioning reveals a focally hemorrhagic lumen. The wall of the appendix averages 0.2 cm in thickness. Also received within the same container are 2 duran, irregular portions of soft tissue measuring 1.5 x 1.4 x 0.8 cm and 2.0 x 1.7 x 0.6 cm. The smaller portion displays a staple line and is consistent with a portion of cecum. Graphic Manager sections are submitted in 2 cassettes as follows: 1-bisected distal tip of appendix and service representative cross-sections; 2-Graphic Manager sections from separately received portions of tissue. 04/30/201704/30/2017
== END 2017-04-30 14:00 | disposition home or self-care (01) | DRG 853 ==
LOC: JER 12:44 → JERBED 16:41 → J8W 21:50
PROVIDERS: ADMIT Family Medicine; ATTEND Family Medicine
PROC: 0DBH4ZZ Excision of Cecum, Percutaneous Endoscopic Approach (ICD-10-PCS; 2017-04-26)
PROC: 0DBS4ZZ (ICD-10-PCS; 2017-04-26)
PROC: 3E1M38Z Irrigation of Peritoneal Cavity using Irrigating Substance, Percutaneous Approach (ICD-10-PCS; 2017-04-26)
PROC: 0DTJ4ZZ Resection of Appendix, Percutaneous Endoscopic Approach (ICD-10-PCS; principal; 2017-04-26 18:30)
DX: A41.59 Other Gram-negative sepsis (principal); K35.2 Acute appendicitis with generalized peritonitis; R50.9 Fever, unspecified; R63.0 Anorexia; Z68.27 Body mass index [BMI] 27.0-27.9, adult; I10 Essential (primary) hypertension
CPT/HCPCS: 36415; 71010-TC; 74177-TC; 76705-TC; 80048; 80053; 81003; 81015; 83605; 83690; 83735; 85025; 85610; 86140; 86850; 86900; 86901; 87040; 87086; 88304-TC; 93005; 93010; 94760; 99284-25; J1644